=== PATIENT | male | born 1980 ===

== ENCOUNTER 2017-09-07 18:17 | Emergency (ER) | payer OTHER ==
[~2017-09-07] VITALS: Ht 175.3 cm; Wt 79.4 kg
[~2017-09-07 18:17] MED LIST: ALBU90OI INH; BENZ100A PO; CLON.5 PO; CLON2 PO; IBUP800 PO; Klonopin1 MG PO; Norco 5-325 Ta1 EACH PO; SPACE CHAMBER1 EACH MC; SULTRIDS PO
[2017-09-07] MEDS ORDERED: Flonase 0.05% N16 GM (18:35)
[2017-09-07] MEDS ORDERED: Pataday2.5 ML BOTHEYES (18:35)
[2017-09-07] MEDS ORDERED: Sudogest60 MG PO (18:35)
== END 2017-09-07 18:44 | disposition home or self-care (01) ==
LOC: ER 18:17
DX: H10.10 Acute atopic conjunctivitis, unspecified eye (principal); J30.9 Allergic rhinitis, unspecified; H65.93 Unspecified nonsuppurative otitis media, bilateral; Z79.899 Other long term (current) drug therapy; F41.9 Anxiety disorder, unspecified; Z87.891 Personal history of nicotine dependence
CPT/HCPCS: 96372; 99283; J3301

== ENCOUNTER 2018-05-08 16:10 | Emergency (ER) | payer SELFPAY ==
[~2018-05-08] VITALS: Ht 165.1 cm; Wt 80.7 kg
[~2018-05-08 16:10] MED LIST changes: +Flonase 0.05% N16 GM; +Pataday2.5 ML BOTHEYES; +Sudogest60 MG PO
[2018-05-08] MEDS ORDERED: Klonopin1 MG PO (17:06)
== END 2018-05-08 17:09 | disposition home or self-care (01) ==
LOC: ER 16:10
DX: Z76.0 Encounter for issue of repeat prescription (principal); F41.9 Anxiety disorder, unspecified; Z79.899 Other long term (current) drug therapy
CPT/HCPCS: 99281